=== PATIENT | male | born 1980 | race Caucasian/White ===

== ENCOUNTER 2024-01-08 07:57 | Day surgery (SDC) | payer OTHER ==
[~2024-01-08 07:57] MED LIST: LIDOCAINE 1% (10MG/ML) FOR IV START INTRADERMA PRN; ONDANSETRON 4 MG/2 ML VIAL IVP PRN
[2024-01-08] MEDS: LACTATED RINGERS 1,000 ML IV SCH (08:33)
[2024-01-08] MEDS: IV FLUID CONTINUATION 1,000 ML IV ONE (08:34)
[2024-01-08 08:57] VITALS: RESP 18; TEMP 98.2
[2024-01-08] MEDS ORDERED: PROPOFOL 10 MG/ML 20 ML VIAL IV ONE (09:35)
--- NOTE | 2024-01-08 09:56 | P.PCN ---
Date of Procedure: 01/08/24 Procedure(s) Performed: BRIEF HISTORY: Patient is a 43-year-old pleasant white male scheduled for an elective colonoscopy as a part of evaluation of intermittent rectal bleeding for the last 1 year duration. PROCEDURE PERFORMED: Colonoscopy with snare polypectomy. PREOPERATIVE DIAGNOSIS: Intermittent rectal bleeding. IV sedation per Anesthesia. PROCEDURE: After informed consent was obtained, the patient, was brought into the endoscopy unit. IV sedation was administered by Anesthesia under continuous monitoring. Digital rectal examination was normal. Initially the Olympus CF-160 flexible video colonoscope was then inserted in the rectum, gradually advanced into the cecum without any difficulty. Careful examination was performed as the scope was gradually being withdrawn. Ileocecal valve and the appendiceal orifice were visualized and appeared normal. Prep was excellent. Mucosa of the cecum, ascending colon, transverse colon, descending colon appeared normal. The sigmoid colon there was a 5 mm polyp that was removed by cold snare polypectomy. Rest of the, sigmoid colon, and rectum appeared normal. Scattered sigmoid diverticulosis retroflexion was performed in the rectum and they did not hemorrhoids were seen. The patient tolerated the procedure well. IMPRESSION: 5 mm sigmoid colon polyp status post cold snare polypectomy Scattered sigmoid diverticulosis Grade 2 internal hemorrhoids. RECOMMENDATIONS: Findings of this examination were discussed with the patient as well as his family. Results. He was advised to be on high-fiber diet and take fiber supplements on a regular basis.. If the biopsy reveals adenoma recommend a repeat colonoscopy in 5 years.
[2024-01-08] MEDS: KETOROLAC 15 MG/ML 1 ML VIAL ONE (10:21)
[2024-01-08 10:46] VITALS: BP 135/91; PULSE 93
== END 2024-01-08 11:06 | disposition home or self-care (01) ==
LOC: ORWHC2ENDO 07:57
PROVIDERS: ATTEND Internal Medicine Gastroenterology
DX: K63.5 Polyp of colon (principal); K57.30 Diverticulosis of large intestine without perforation or abscess without bleeding; K64.1 Second degree hemorrhoids; G43.909 Migraine, unspecified, not intractable, without status migrainosus; G47.00 Insomnia, unspecified; E66.9 Obesity, unspecified; Z79.899 Other long term (current) drug therapy; Z88.5 Allergy status to narcotic agent; Z91.048 Other nonmedicinal substance allergy status
CPT/HCPCS: 88305; 45385; J1885; J2704

== ENCOUNTER 2024-03-10 23:11 | Emergency (ER) | payer OTHER ==
[2024-03-10 23:23] VITALS: RESP 20
[2024-03-11] MEDS: PROPARACAINE 0.5% OPHTH DROPS 15 ML BTL LEFT EYE STA (00:21)
[2024-03-11] MEDS: FLUORESCEIN STRIPS 1 MG STRIP LEFT EYE ONE (00:21)
--- NOTE | 2024-03-11 01:01 | ED ---
Eye Problem HPI - General Chief complaint: Eye Problems Stated complaint: Left Eye Problem Time Seen by Provider: 03/10/24 23:54 Source: patient Mode of arrival: ambulatory Limitations: no limitations - History of Present Illness Initial comments: 43-year-old male presenting with chief complaint of left eye pain. Patient states that he woke up from a nap with pain and burning sensation to the left eye as well as blurred vision and watering of the eye. He denies any known injury or trauma. No foreign body sensation. No vision loss. No flashes or fl oaters. No light sensitivity. No purulent discharge. Patient does not wear contact lenses in the affected eye, states that he sometimes wears a contact lens in the left eye - Related Data Home Medications Medication Instructions Recorded Confirmed Cetirizine HCl 10 mg PO QAM 01/07/24 01/08/24 Ergocalciferol [Vitamin D2 (1250 1 cap PO Q7D 01/07/24 01/08/24 Mcg = 58839 Iu)] Allergies Allergy/AdvReac Type Severity Reaction Status Date / Time morphine AdvReac Chest Pain Verified 03/10/24 23:23 Review of Systems ROS Statement: Those systems with pertinent positive or pertinent negative responses have been documented in the HPI. ROS Other: All systems not noted in ROS Statement are negative. Past Medical History Additional Past Medical History / Comment(s): seasonal allergies, migraines, insomnia, rectal bleeding intermittently after bowel movement History of Any Multi-Drug Resistant Organisms: None Reported Additional Past Surgical History / Comment(s): colonoscopy years ago, Lt. eye surgery as a child, kidney stone removal w/ stent Past Anesthesia/Blood Transfusion Reactions: No Reported Reaction Past Psychological History: No Psychological Hx Reported Smoking Status: Never smoker - Past Family History Father Family Medical History: Diabetes Mellitus Additional Family Medical History / Comment(s): paternal grandfather of [place] General Exam Limitations: no limitations General appearance: alert, in no apparent distress Head exam: Present: atraumatic, normocephalic Eye exam: Present: PERRL, EOMI, conjunctival injection. Absent: periorbital swelling Pupils: Present: normal accommodation Expanded Eyelids: Normal Inspection: Bilateral Sclera/Conjunctival: Injection: Left Visual acuity (R) = 20/: 30 Visual acuity (L) = 20/: 50 IOP (R) in mmH IOP (L) in mmH Neck exam: Present: normal inspection. Absent: meningismus Respiratory exam: Absent: respiratory distress Cardiovascular Exam: Present: regular rate Neurological exam: Present: alert, oriented X3 Psychiatric exam: Present: normal affect, normal mood Skin exam: Present: normal color Course Vital Signs 03/10/24 03/11/24 23:20 01:20 Temperature 97.5 F L 97.8 F Pulse Rate 80 72 Respiratory 20 20 Rate Blood Pressure 134/80 132/81 O2 Sat by Pulse 98 99 Oximetry Medical Decision Making - Medical Decision Making Was pt. sent in by a medical professional or institution (, JEANNETTE, MESH CUTTER, urgent care, hospital, or long-term...) When possible be specific @ -No Did you speak to anyone other than the patient for history (EMS, parent, family, police, friend...)? What history was obtained from this source @ -No Did you review nursing and triage notes (agree or disagree)? Why? @ -I reviewed and agree with nursing and triage notes Were old charts reviewed (outside hosp., previous admission, EMS record, old EKG, old radiological studies, urgent care reports/EKG's, long-term records)? Report findings @ -No old charts were reviewed Differential Diagnosis (chest pain, altered mental status, abdominal pain women, abdominal pain men, vaginal bleeding, weakness, fever, dyspnea, syncope, headache, dizziness, GI bleed, back pain, seizure, CVA, palpatations, mental health, musculoskeletal)? @ -Differential includes corneal abrasion, conjunctivitis, acute angle-closure glaucoma, foreign body, allergic reaction, this is not an all-inclusive list EKG interpreted by me (3pts min.). @ -As above X-rays interpreted by me (1pt min.). @ -None done CT interpreted by me (1pt min.). @ -None done U/S interpreted by me (1pt. min.). @ -None done What testing was considered but not performed or refused? (CT, X-rays, U/S, labs)? Why? @ -None What meds were considered but not given or refused? Why? @ -None Did you discuss the management of the patient with other professionals (professionals i.e. , JEANNETTE, MESH CUTTER, lab, RT, psych nurse, bilingual social worker, combination saw operator, teacher, correction officer reformatory, case finishing machine adjuster)? Give summary @ -No Was smoking cessation discussed for >3mins.? @ -No Was critical care preformed (if so, how long)? @ -No Were there social determinants of health that impacted care today? How? (Homelessness, low income, unemployed, alcoholism, drug addiction, transportation, low edu. Level, literacy, decrease access to med. care, fdc, rehab)? @ -No Was there de-escalation of care discussed even if they declined (Discuss DNR or withdrawal of care, Hospice)? DNR status @ -No What co-morbidities impacted this encounter? (DM, HTN, Smoking, COPD, CAD, Cancer, CVA, ARF, Chemo, Hep., AIDS, mental health diagnosis, sleep apnea, morbid obesity)? @ -None Was patient admitted / discharged? Hospital course, mention meds given and route, prescriptions, significant lab abnormalities, going to OR and other pertinent info. @ -43-year-old male presenting with chief complaint of left thigh pain after waking up from a nap today. He does admit to some blurred vision and watering from the eye as well. On exam there is some scleral injection, PERRLA. IOP's are WNL bilaterally. Mildly decreased visual acuity in the left eye, 20/30 on the right and 20/50 on the left. He does have relief of his symptoms after applying proparacaine. Fluorescein staining does show some uptake over the iris in the 5 o'clock position. Patient is provided with Cipro eyedrops and ketorolac eyedrops. Instructed to follow-up with ophthalmology. Discharged home. Follow-up with PCP. Report back to ER with any new or worsening symptoms. Discussed return parameters and answered all questions. Patient conveyed verbal understanding and agreed to the plan. I discussed this case in detail with my attending Dr. Ortiz Undiagnosed new problem with uncertain prognosis? @ -No Drug Therapy requiring intensive monitoring for toxicity (Heparin, Nitro, Insulin, Cardizem)? @ -No Were any procedures done? @ -No Diagnosis/symptom? @ -Corneal abrasion Acute, or Chronic, or Acute on Chronic? @ -Acute Uncomplicated (without systemic symptoms) or Complicated (systemic symptoms)? @ -Uncomplicated Side effects of treatment? @ -No Exacerbation, Progression, or Severe Exacerbation? @ -No Poses a threat to life or bodily function? How? (Chest pain, USA, ID, pneumonia, PE, COPD, DKA, ARF, appy, cholecystitis, CVA, Diverticulitis, Homicidal, Suicidal, threat to staff... and all critical care pts) @ -Unlikely Disposition Clinical Impression: Corneal abrasion Disposition: HOME SELF-CARE Condition: Good Instructions (If sedation given, give patient instructions): Corneal Abrasion (ED) Additional Instructions: Follow-up with PCP and supervisor cell operation. Report back to ER with any new or worsening symptoms. Apply 2 ciprofloxacin eyedrops to the affected eye 4 times daily for 5 days to prevent infection Apply 1 ketorolac eyedrop to the affected eye up to 4 times a day as needed for pain Is patient prescribed a controlled substance at d/c from ED?: No Referrals: Feliciano Stevenson MD [Primary Care Provider] - 1-2 days Richar Wheeler MD [STAFF PHYSICIAN] - 1-2 days Time of Disposition: 01:00
[2024-03-11] MEDS: KETOROLAC 0.5% OPHTH DROPS 5 ML BTL LEFT EYE ONE (01:19)
[2024-03-11] MEDS: CIPROFLOXACIN 0.3% OPHTH SOLN 5 ML BTL LEFT EYE ONE (01:19)
[2024-03-11 01:31] VITALS: BP 132/81; PULSE 72; TEMP 97.8
== END 2024-03-11 01:20 | disposition home or self-care (01) ==
LOC: EC 23:11
DX: S05.02XA Injury of conjunctiva and corneal abrasion without foreign body, left eye, initial encounter (principal); Z88.5 Allergy status to narcotic agent; X58.XXXA Exposure to other specified factors, initial encounter
CPT/HCPCS: 99282

== ENCOUNTER 2024-04-30 13:34 | Emergency (ER) | payer OTHER ==
[2024-04-30 13:42] VITALS: TEMP 98.2
[2024-04-30] MEDS: diphenhydrAMINE 50 MG/ML 1 ML VIAL IVP STA (15:15)
[2024-04-30] MEDS: METOCLOPRAMIDE 5 MG/ML 2 ML VIAL IVP STA (15:16)
[2024-04-30] MEDS: ACETAMINOPHEN IV (For NPO) 1,000 MG in EMPTY BAG 1 BAG IVPB STA (15:33)
[2024-04-30] MEDS: SODIUM CHLORIDE 0.9% 500 ML 500 ML IV ONE (15:35)
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
[2024-04-30] MEDS: KETOROLAC 15 MG/ML 1 ML VIAL IVP STA (16:02)
[2024-04-30] MEDS: HYDROmorphone 0.5 MG/0.5 ML SYRINGE IVP STA (16:36)
[2024-04-30 16:57] VITALS: BP 131/86; PULSE 80; RESP 16
== END 2024-04-30 16:57 | disposition home or self-care (01) ==
LOC: EC 13:34
CPT/HCPCS: 70450; 96365; 96375; 99284

== ENCOUNTER 2024-07-28 23:59 | Emergency (ER) | payer OTHER ==
[2024-07-29 00:34] VITALS: RESP 18
[2024-07-29] MEDS: dexAMETHasone 2 MG TAB PO STA (01:27)
[2024-07-29] MEDS: KETOROLAC 15 MG/ML 1 ML VIAL IM STA (01:29)
[2024-07-29] MEDS: ACETAMINOPHEN TAB 500 MG TAB PO STA (01:57)
--- NOTE | 2024-07-29 02:22 | ED ---
General Adult HPI - General Chief complaint: Upper Respiratory Infection Stated complaint: Fever, Cough Time Seen by Provider: 07/29/24 01:10 Source: patient, family, RN notes reviewed, old records reviewed Mode of arrival: wheelchair Limitations: no limitations - History of Present Illness Initial comments: Patient is a 43-year-old male who presents emergency department complaining of flulike symptoms. Have been ongoing for 3 days. Is complaining of fever, generalized bodyaches, cough. Has been taking DayQuil and NyQuil with minimal relief. Denies any nausea, vomiting, diarrhea, chest discomfort. States he has rib pain when he coughs. Does endorse a mild sore throat as well as well as the ear pressure sensation. Has no other acute complaints at this time. Presents for further evaluation. No significant past medical history.Patient's workup was started in triage prior to me evaluating the patient. - Related Data Home Medications Medication Instructions Recorded Confirmed Eletriptan [Relpax] 40 mg PO DIRECTED PRN 04/30/24 04/30/24 Vitamin D3/Vitamin K2 (Mk4) 1 tab PO DAILY 04/30/24 04/30/24 [Vitamin K2 Plus D3 Tablet] Previous Rx's Medication Instructions Recorded Azithromycin [Zithromax] 250 mg PO DAILY 4 Days #4 tab 07/29/24 Allergies Allergy/AdvReac Type Severity Reaction Status Date / Time morphine AdvReac Chest Pain Verified 07/29/24 00:29 Review of Systems ROS Statement: Those systems with pertinent positive or pertinent negative responses have been documented in the HPI. Review of Systems: CONST: Endorses fever EYES: Denies blurry vision ENT: Endorses nasal congestion C/V: Denies Chest pain RESP: Denies shortness of breath GI: Denies abdominal pain : Denies dysuria SKIN: Denies rash. MSK: Denies joint pain. NEURO: Denies headache ROS Other: All systems not noted in ROS Statement are negative. Past Medical History Additional Past Medical History / Comment(s): seasonal allergies, migraines, insomnia, rectal bleeding intermittently after bowel movement, Kidney stones History of Any Multi-Drug Resistant Organisms: None Reported Additional Past Surgical History / Comment(s): colonoscopy years ago, Lt. eye surgery as a child, kidney stone removal w/ stent Past Anesthesia/Blood Transfusion Reactions: No Reported Reaction Past Psychological History: No Psychological Hx Reported Smoking Status: Never smoker Past Alcohol Use History: None Reported Past Drug Use History: None Reported - Past Family History Father Family Medical History: Diabetes Mellitus Additional Family Medical History / Comment(s): paternal grandfather of [place] General Exam - General Exam Comments Initial Comments: General: Appears in no acute distress. Nontoxic-appearing. Afebrile. HEAD: Normal with no signs of head trauma. EYES: PERRLA, EOMI, conjunctiva normal, no discharge. ENT: Hearing grossly intact, normal oropharynx. RESPIRATORY: Clear breath sounds bilaterally. No wheezes, rales, or rhonchi. C/V: Tachycardia with regular rhythm. S1 and S2 auscultated. Peripheral pulses 2+ intact throughout. ABD: Abd is soft, nontender, nondistended EXT: Normal range of motion, no obvious deformity SKIN: No rashes or lesions observed on exposed skin. NEURO: Alert and oriented x 4. Limitations: no limitations Course Vital Signs 07/29/24 07/29/24 07/29/24 00:31 02:34 03:38 Temperature 99.9 F H 98.5 F 98.6 F Pulse Rate 101 H 92 90 Respiratory 18 18 18 Rate Blood Pressure 129/80 130/84 128/76 O2 Sat by Pulse 96 97 97 Oximetry Medical Decision Making - Medical Decision Making Was pt. sent in by a medical professional or institution (JEANNETTE Garcia, SCIENTIST ENGINEER, urgent care, hospital, or custodial...) When possible be specific @ -No Did you speak to anyone other than the patient for history (EMS, parent, family, police, friend...)? What history was obtained from this source @ -No Did you review nursing and triage notes (agree or disagree)? Why? @ -I reviewed and agree with nursing and triage notes Were old charts reviewed (outside hosp., previous admission, EMS record, old EKG, old radiological studies, urgent care reports/EKG's, custodial records)? Report findings @ -No old charts were reviewed Differential Diagnosis (chest pain, altered mental status, abdominal pain women, abdominal pain men, vaginal bleeding, weakness, fever, dyspnea, syncope, headache, dizziness, GI bleed, back pain, seizure, CVA, palpatations, mental health, musculoskeletal)? @ -Pneumonia, viral syndrome, strep. This list is not all inclusive. EKG interpreted by me (3pts min.). @ -As above X-rays interpreted by me (1pt min.). @ -Chest x-ray reveals no obvious acute cardiopulmonary process. CT interpreted by me (1pt min.). @ -None done U/S interpreted by me (1pt. min.). @ -None done What testing was considered but not performed or refused? (CT, X-rays, U/S, labs)? Why? @ -None What meds were considered but not given or refused? Why? @ -None Did you discuss the management of the patient with other professionals (professionals i.e. , PA, SCIENTIST ENGINEER, lab, RT, psych nurse, director of social services, carpenter form, teacher, forest officer, keycase assembler)? Give summary @ -No Was smoking cessation discussed for >3mins.? @ -No Was critical care preformed (if so, how long)? @ -No Were there social determinants of health that impacted care today? How? (Homelessness, low income, unemployed, alcoholism, drug addiction, transportation, low edu. Level, literacy, decrease access to med. care, fci, rehab)? @ -No Was there de-escalation of care discussed even if they declined (Discuss DNR or withdrawal of care, Hospice)? DNR status @ -No What co-morbidities impacted this encounter? (DM, HTN, Smoking, COPD, CAD, Cancer, CVA, ARF, Chemo, Hep., AIDS, mental health diagnosis, sleep apnea, morbid obesity)? @ -None Was patient admitted / discharged? Hospital course, mention meds given and route, prescriptions, significant lab abnormalities, going to OR and other pertinent info. @ -Presents emergency department complaining of flulike syndrome. Vitals remarkable for mild tachycardia with a borderline fever at 99.9. Patient will be given Toradol, Tylenol, as well as a dose of Decadron. We will obtain viral swabs, strep swab, chest x-ray. He was in agreement this plan. With the rib pain, we will obtain a screening EKG. Patient was in agreement this plan. Chest x-ray reveals no obvious acute cardiopulmonary process. Screening EKG shows no obvious acute ischemic process. Laboratory studies remarkable for negative viral swabs, negative strep. On reevaluation, patient is feeling somewhat improved. Vital signs are within acceptable limits. He will be discharged home at this time. He will be given a work note. He will be treated for tracheobronchitis with azithromycin. He was in agreement this plan. Given a dose of azithromycin prior to discharge. I will provide the patient with a prescription for azithromycin. I instructed the patient to follow up with their PCP in the next 1-3 days.. I explained that the patient should return to the emergency department if they experience any worsening symptoms. Strict return precautions were discussed with the patient. The patient expressed understanding of these instructions. I answered all q uestions that the patient had. The patient was discharged home in good condition with their prescriptions and follow up information. Undiagnosed new problem with uncertain prognosis? @ -No Drug Therapy requiring intensive monitoring for toxicity (Heparin, Nitro, Insulin, Cardizem)? @ -No Were any procedures done? @ -No Diagnosis/symptom? @ -Tracheobronchitis Acute, or Chronic, or Acute on Chronic? @ -Acute Uncomplicated (without systemic symptoms) or Complicated (systemic symptoms)? @ -Complicated Side effects of treatment? @ -None Exacerbation, Progression, or Severe Exacerbation] @ -No Poses a threat to life or bodily function? @ -Unlikely - Lab Data Lab Results 07/29/24 07/29/24 Range/Units 00:35 01:31 Influenza Type A (PCR) Not Detected (Not Detectd) Influenza Type B (PCR) Not Detected (Not Detectd) RSV (PCR) Not Detected (Not Detectd) SARS-CoV-2 (PCR) Not Detected (Not Detectd) Group A Strep (PCR) NOT DETECTED (Not Detectd) - EKG Data -: EKG Interpreted by Me EKG Comments: 12-lead Electrocardiogram Interpretation Note EKG was reviewed and interpreted by myself. 12-lead ECG performed at 0230 is interpreted by me as revealing normal sinus rhythm at a rate of 87 beats per minute. [place] is normal. UT interval is 173 ms, QRS duration is 111 ms, QTc is 376 ms.. There were no ST or T wave abnormalities to suggest myocardial ischemia or injury. R wave progression across the precordium was satisfactory. By my interpretation this EKG is non-diagnostic for acute ischemia. Disposition Clinical Impression: Tracheobronchitis Disposition: ADMITTED IP TO THIS HOSP Condition: Stable Instructions (If sedation given, give patient instructions): Acute Bronchitis (ED) Prescriptions: Azithromycin [Zithromax] 250 mg PO DAILY 4 Days #4 tab Is patient prescribed a controlled substance at d/c from ED?: No Referrals: Feliciano Stevenson MD [Primary Care Provider] - 1-2 days Time of Disposition: 03:30
--- NOTE | 2024-07-29 03:10 | XR ---
EXAM: XR Chest, 2 Views CLINICAL HISTORY: ITS.REASON XR Reason: cough, fever TECHNIQUE: Frontal and lateral views of the chest. COMPARISON: No relevant prior studies available. FINDINGS: Lungs: Unremarkable. No consolidation. Pleural space: Unremarkable. No pneumothorax. Heart: Unremarkable. No cardiomegaly. Mediastinum: Unremarkable. Normal mediastinal contour. Bones/joints: Unremarkable. No acute fracture. IMPRESSION: No evidence of acute cardiopulmonary disease.
[2024-07-29] MEDS: AZITHROMYCIN 500 MG TAB PO STA (03:36)
[2024-07-29 03:39] VITALS: BP 128/76; PULSE 90; TEMP 98.6
== END 2024-07-29 03:40 | disposition other institution (70) ==
LOC: EC 23:59
DX: J40 Bronchitis, not specified as acute or chronic (principal); Z88.5 Allergy status to narcotic agent
CPT/HCPCS: 93005; 87651; 87636; 71046; 99285; 96372; J8540; J1885

== ENCOUNTER 2024-08-20 20:34 | Emergency (ER) | payer OTHER ==
[2024-08-20 20:51] VITALS: PULSE 90; TEMP 98
[2024-08-20] MEDS: KETOROLAC 15 MG/ML 1 ML VIAL IVP STA (21:40)
[2024-08-20 21:52] LABS: Basophils # (A) 0.1 k/uL (0-0.2); Basophils % (A) 1 %; Eosinophils # (A) 0.3 k/uL (0-0.7); Eosinophils % (A) 4 %; HGB 15.2 gm/dL (13.0-17.5); Lymphocytes # (A) 2.6 k/uL (1.0-4.8); Lymphocytes % (A) 36 %; MCH 29.5 pg (25.0-35.0); MCHC 33.9 g/dL (31.0-37.0); Mean Platelet Volume 7.2; Monocytes # (A) 0.5 k/uL (0-1.0); Monocytes % (A) 7 %; Neutrophils # (A) 3.6 k/uL (1.3-7.7); Neutrophils % (A) 50 %; Platelet Count 186 k/uL (150-450); RBC 5.17 m/uL (4.30-5.90); RDW 13.6 % (11.5-15.5); WBC 7.2 k/uL (3.8-10.6)
[2024-08-20 22:07] LABS: ALT 33 U/L (4-49); AST 24 U/L (17-59); African American GFR (CKD) >90 (>60 ml/min/1.73 sqM); Albumin 4.6 g/dL (3.5-5.0); Alkaline Phosphatase 63 U/L (38-126); Anion Gap 10 mmol/L; Blood Urea Nitrogen 10 mg/dL (9-20); Calcium 9.8 mg/dL (8.4-10.2); Carbon Dioxide 27 mmol/L (22-30); Chloride 104 mmol/L (98-107); Glucose 107 mg/dL (74-99); Non-African American GFR(CKD) >90 (>60 ml/min/1.73 sqM); Potassium 4.1 mmol/L (3.5-5.1); Sodium 141 mmol/L (137-145); Total Bilirubin 1.4 mg/dL (0.2-1.3); Total Protein 7.2 g/dL (6.3-8.2)
--- NOTE | 2024-08-20 22:12 | CT ---
EXAMINATION TYPE: CT abdomen pelvis wo con DATE OF EXAM: 08/20/2024 9:56 PM COMPARISON: None CLINICAL INDICATION: Male, 43 years old with history of Right flank pain; Right flank pain and hematu yocasta. HX of kidney stones. TECHNIQUE: Axial CT abdomen pelvis wo con;Sagittal and coronal reformats were created on a separate workstation. Contrast used: mL of , (none if empty) Oral contrast used: without Oral Contrast (none if empty) CT DLP: 1999.4 mGycm, Automated exposure control for dose reduction was used. FINDINGS: LOWER CHEST: Unremarkable ABDOMEN LIVER: Diffusely hypoattenuating parenchyma. GALLBLADDER AND BILE DUCTS: Unremarkable. PANCREAS: Unremarkable. SPLEEN: Enlarged measuring up to 19.1 cm.r ADRENAL GLANDS: Unremarkable. KIDNEYS AND URETERS: Nonobstructing right tendon millimeter calculus. No right hydronephrosis. No lef t renal calculi. Couple pelvic phleboliths. Distal ureters bilaterally. PELVIS BLADDER: No evidence for wall thickening or mass given limitations of exam. REPRODUCTIVE: Unremarkable. ABDOMEN & PELVIS STOMACH AND BOWEL: No evidence of bowel obstruction. Elongated appendix extending medially is identif ied and within normal limits. PERITONEUM/RETROPERITONEUM: No evidence of pneumoperitoneum or free flu id. VASCULATURE: No evidence of aortic aneurysm. MUSCULOSKELETAL: No acute osseous abnormalities LYMPH NODES: No gross evidence for lymphadenopathy. SOFT TISSUE/ABDOMINAL WALL: Fat-containing inguinal hernias left greater than right. IMPRESSION: 1. Nonobstructing right renal contrast. No hydronephrosis. No evidence for heart structure uropathy. 2. Hepatic steatosis. 3. Splenomegaly. 4. Elongated tubular structure thought to represent the appendix is normal. [facility], , 08/20/2024 10:09 PM
[2024-08-20 22:41] LABS: Appearance,Urine Clear (Clear); Bilirubin,Urine Negative (Negative); Blood,Urine Negative (Negative); Color,Urine Yellow; Glucose,Urine (UA) Negative (Negative); Ketones,Urine Negative (Negative); Leukocyte Esterase,Urine Negative (Negative); Nitrite,Urine Negative (Negative); PH, Urine 6.5 (5.0-8.0); Protein,Urine Negative (Negative); Specific Gravity,Urine 1.022 (1.001-1.035)
--- NOTE | 2024-08-20 23:08 | ED ---
Male Urogenital HPI - General Chief complaint: Urogenital Stated complaint: Kidney stones Time Seen by Provider: 08/20/24 20:53 Source: patient Mode of arrival: ambulatory - History of Present Illness Initial comments: 43-year-old male presenting with chief complaint of flank pain. Patient is having bilateral flank pain worse on the right. Patient has history of kidney stones and states that this feels similar. States that his urine was dark the other day. No dysuria. He denies any injury or trauma. No loss of bowel or bladder control or saddle paresthesia. No radiculopathy. No abdominal pain. He was taking Motrin at home which was not really helping his pain. No nausea or vomiting. No chest pain or difficulty breathing. - Related Data Home Medications Medication Instructions Recorded Confirmed Eletriptan [Relpax] 40 mg PO DIRECTED PRN 04/30/24 04/30/24 Vitamin D3/Vitamin K2 (Mk4) 1 tab PO DAILY 04/30/24 04/30/24 [Vitamin K2 Plus D3 Tablet] Previous Rx's Medication Instructions Recorded Azithromycin [Zithromax] 250 mg PO DAILY 4 Days #4 tab 07/29/24 Ketorolac [Toradol] 10 mg PO Q6HR PRN #12 tab 08/20/24 Tamsulosin [Flomax] 0.4 mg PO DAILY #10 cap 08/20/24 Allergies Allergy/AdvReac Type Severity Reaction Status Date / Time morphine AdvReac Chest Pain Verified 08/20/24 20:46 Review of Systems ROS Statement: Those systems with pertinent positive or pertinent negative responses have been documented in the HPI. ROS Other: All systems not noted in ROS Statement are negative. Past Medical History Additional Past Medical History / Comment(s): seasonal allergies, migraines, insomnia, rectal bleeding intermittently after bowel movement, Kidney stones History of Any Multi-Drug Resistant Organisms: None Reported Additional Past Surgical History / Comment(s): colonoscopy years ago, Lt. eye surgery as a child, kidney stone removal w/ stent Past Anesthesia/Blood Transfusion Reactions: No Reported Reaction Past Psychological History: No Psychological Hx Reported Smoking Status: Never smoker Past Alcohol Use History: None Reported Past Drug Use History: None Reported - Past Family History Father Family Medical History: Diabetes Mellitus Additional Family Medical History / Comment(s): paternal grandfather of [place] General Exam Limitations: no limitations General appearance: alert, in no apparent distress Head exam: Present: atraumatic, normocephalic, normal inspection Eye exam: Present: normal appearance, EOMI Neck exam: Present: normal inspection. Absent: meningismus Respiratory exam: Absent: respiratory distress Cardiovascular Exam: Present: regular rate Extremities exam: Present: normal inspection Back exam: Present: normal inspection, tenderness Neurological exam: Present: alert, oriented X3 Psychiatric exam: Present: normal affect, normal mood Skin exam: Present: warm, dry Course Vital Signs 08/20/24 08/20/24 20:46 23:11 Temperature 98.0 F Pulse Rate 90 90 Respiratory 20 18 Rate Blood Pressure 144/88 140/89 O2 Sat by Pulse 96 97 Oximetry Medical Decision Making - Medical Decision Making Was pt. sent in by a medical professional or institution (JEANNETTE Garcia, DEVELOPMENT COACH, urgent care, hospital, or custodial...) When possible be specific @ -No Did you speak to anyone other than the patient for history (EMS, parent, family, police, friend...)? What history was obtained from this source @ -No Did you review nursing and triage notes (agree or disagree)? Why? @ -I reviewed and agree with nursing and triage notes Were old charts reviewed (outside hosp., previous admission, EMS record, old EKG, old radiological studies, urgent care reports/EKG's, custodial records)? Report findings @ -No old charts were reviewed Differential Diagnosis (chest pain, altered mental status, abdominal pain women, abdominal pain men, vaginal bleeding, weakness, fever, dyspnea, syncope, headache, dizziness, GI bleed, back pain, seizure, CVA, palpatations, mental health, musculoskeletal)? @ - MDM Differential Back Pain: Strain, zoster, cauda equina syndrome, epidural abscess, vertebral osteomyelitis, discitis, fracture, subluxation, disc herniation, DJD, spinal stenosis, dissection, AAA, pancreatitis, peptic ulcer disease, pyelonephritis, kidney stone this is not meant to be an all-inclusive list. EKG interpreted by me (3pts min.). @ -As above X-rays interpreted by me (1pt min.). @ -None done CT interpreted by me (1pt min.). @ -CT shows nonobstructing right renal calculus. No right hydronephrosis. No left renal calculi. Hepatic steatosis. Splenomegaly. Elongated tubular structure thought to represent the appendix is normal U/S interpreted by me (1pt. min.). @ -None done What testing was considered but not performed or refused? (CT, X-rays, U/S, labs)? Why? @ -None What meds were considered but not given or refused? Why? @ -None Did you discuss the management of the patient with other professionals (professionals i.e. DrChi, PA, DEVELOPMENT COACH, lab, RT, psych nurse, social director, plaster tender, teacher, weapons electrical engineering officer, case technician)? Give summary @ -No Was smoking cessation discussed for >3mins.? @ -No Was critical care preformed (if so, how long)? @ -No Were there social determinants of health that impacted care today? How? (Homelessness, low income, unemployed, alcoholism, drug addiction, tra nsportation, low edu. Level, literacy, decrease access to med. care, senior living, rehab)? @ -No Was there de-escalation of care discussed even if they declined (Discuss DNR or withdrawal of care, Hospice)? DNR status @ -No What co-morbidities impacted this encounter? (DM, HTN, Smoking, COPD, CAD, Cancer, CVA, ARF, Chemo, Hep., AIDS, mental health diagnosis, sleep apnea, morbid obesity)? @ -None Was patient admitted / discharged? Hospital course, mention meds given and route, prescriptions, significant lab abnormalities, going to OR and other pertinent info. @ -43-year-old male presenting with chief complaint of bilateral flank pain worse on the right. No injury or trauma. No red flag symptoms. History of kidney stones. Lab work requires no action. No leukocytosis or anemia. BUN and creatinine and GFR WNL. Urine shows no infection or bleeding. CT shows nonobstructing right-sided renal calculus. On reassessment after Toradol patient reports significant improvement in his symptoms. He is provided with Toradol for home. Patient also previously took Flomax for previous kidney ston es and asked for refill, refill sent in case he needs it in the future. Educated on today's findings and supportive management at home. Follow-up with PCP. Report back to ER with any new or worsening symptoms. Discussed return parameters and answered all questions. Patient conveyed verbal understanding and agreed to the plan. I discussed this case in detail with my attending Dr. Zaragoza Undiagnosed new problem with uncertain prognosis? @ -No Drug Therapy requiring intensive monitoring for toxicity (Heparin, Nitro, Insulin, Cardizem)? @ -No Were any procedures done? @ -No Diagnosis/symptom? @ -Flank pain Acute, or Chronic, or Acute on Chronic? @ -Acute Uncomplicated (without systemic symptoms) or Complicated (systemic symptoms)? @ -Uncomplicated Side effects of treatment? @ -No Exacerbation, Progression, or Severe Exacerbation? @ -No Poses a threat to life or bodily function? How? (Chest pain, [place], [place], pneumonia, PE, COPD, DKA, ARF, appy, cholecystitis, CVA, Diverticulitis, Homicidal, Suicidal, threat to staff... and all critical care pts) @ -Unlikely - Lab Data Result diagrams: 08/20/24 21:30 08/20/24 21:30 Lab Results 08/20/24 08/20/24 08/20/24 Range/Units 21:30 21:30 22:20 WBC 7.2 (3.8-10.6) k/uL RBC 5.17 (4.30-5.90) m/uL Hgb 15.2 (13.0-17.5) gm/dL Hct 45.0 (39.0-53.0) % MCV 87.0 (80.0-100.0) fL MCH 29.5 (25.0-35.0) pg MCHC 33.9 (31.0-37.0) g/dL RDW 13.6 (11.5-15.5) % Plt Count 186 (150-450) k/uL MPV 7.2 Neutrophils % 50 % Lymphocytes % 36 % Monocytes % 7 % Eosinophils % 4 % Basophils % 1 % Neutrophils # 3.6 (1.3-7.7) k/uL Lymphocytes # 2.6 (1.0-4.8) k/uL Monocytes # 0.5 (0-1.0) k/uL Eosinophils # 0.3 (0-0.7) k/uL Basophils # 0.1 (0-0.2) k/uL Sodium 141 (137-145) mmol/L Potassium 4.1 (3.5-5.1) mmol/L Chloride 104 (98-107) mmol/L Carbon Dioxide 27 (22-30) mmol/L Anion Gap 10 mmol/L BUN 10 (9-20) mg/dL Creatinine 0.94 (0.66-1.25) mg/dL Est GFR (CKD-EPI)AfAm >90 (>60 ml/min/1.73 sqM) Est GFR (CKD-EPI)NonAf >90 (>60 ml/min/1.73 sqM) Glucose 107 H (74-99) mg/dL Calcium 9.8 (8.4-10.2) mg/dL Total Bilirubin 1.4 H (0.2-1.3) mg/dL AST 24 (17-59) U/L ALT 33 (4-49) U/L Alkaline Phosphatase 63 (38-126) U/L Total Protein 7.2 (6.3-8.2) g/dL Albumin 4.6 (3.5-5.0) g/dL Urine Color Yellow Urine Appearance Clear (Clear) Urine pH 6.5 (5.0-8.0) Ur Specific [place] 1.022 (1.001-1.035) Urine Protein Negative (Negative) Urine Glucose (UA) Negative (Negative) Urine Ketones Negative (Negative) Urine Blood Negative (Negative) Urine Nitrite Negative (Negative) Urine Bilirubin Negative (Negative) Urine Urobilinogen 4.0 (<2.0) mg/dL Ur Leukocyte Esterase Negative (Negative) Disposition Clinical Impression: Flank pain Disposition: HOME SELF-CARE Condition: Good Instructions (If sedation given, give patient instructions): Flank Pain (ED) Additional Instructions: Follow-up with your PCP. Report back to ER with any new or worsening symptoms. Do not combine ketorolac with other NSAIDs such as ibuprofen (Motrin) or naproxen (Aleve) Prescriptions: Tamsulosin [Flomax] 0.4 mg PO DAILY #10 cap Ketorolac [Toradol] 10 mg PO Q6HR PRN #12 tab PRN Reason: Pain Is patient prescribed a controlled substance at d/c from ED?: No Referrals: Feliciano Stevenson MD [Primary Care Provider] - 1-2 days Time of Disposition: 23:08
[2024-08-20 23:12] VITALS: BP 140/89; RESP 18
== END 2024-08-20 23:14 | disposition home or self-care (01) ==
LOC: EC 20:34
DX: K76.0 Fatty (change of) liver, not elsewhere classified (principal); R16.1 Splenomegaly, not elsewhere classified; Z88.5 Allergy status to narcotic agent
CPT/HCPCS: 36415; 80053; 85025; 81003; 74176; 99284; 96374; J1885